=== PATIENT | male | born 1960 | race Hispanic/Latino ===

== ENCOUNTER 2021-03-29 07:28 | Outpatient (CLI) | payer OTHER, SELFPAY ==
[2021-03-29 07:59] LABS: Alanine Aminotransferase 25 U/L (4-50); Albumin Level 4.3 g/dL (3.5-5.1); Alkaline Phosphatase 65 U/L (38-126); Anion Gap 6 mmol/L (8-16); Aspartate Amino Transferase 27 U/L (17-59); Bilirubin,Total 0.3 mg/dL (0.2-1.3); Blood Urea Nitrogen 13 mg/dL (9-20); Calcium 9.3 mg/dL (8.4-10.2); Carbon Dioxide 27 mmol/L (22-30); Chloride 107 mmol/L (98-107); Cholesterol 190 mg/dL (0-200); Estimated Glomerular Filt Rate > 60; Glucose 138 mg/dL (75-110); HDL Direct 32 mg/dL; Potassium 4.1 mmol/L (3.4-5.0); Sodium 140 mmol/L (137-145); Triglycerides 187 mg/dL (<150)
[2021-03-29 08:10] LABS: LDL Cholesterol Direct 126 mg/dL
[2021-03-29 08:28] LABS: Prostate Specific Antigen 1.1 ng/mL (< OR = 4.0)
[2021-03-29 09:04] LABS: Vitamin D 25 Hydroxy 49.6 ng/mL
[2021-03-29 15:57] LABS: Creatinine Urine 54.6 mg/dL
[2021-03-29 16:01] LABS: Microalbumin Urine Random 35.5 mg/L (0-16.7)
== END 2021-03-29 07:29 | disposition home or self-care (01) ==
PROVIDERS: PCP Family Medicine; Visit Provider Family Medicine
DX: Z12.5 Encounter for screening for malignant neoplasm of prostate (principal); E78.2 Mixed hyperlipidemia; I10 Essential (primary) hypertension; E55.9 Vitamin D deficiency, unspecified; R79.89 Other specified abnormal findings of blood chemistry; Z13.220 Encounter for screening for lipoid disorders; E13.40 Other specified diabetes mellitus with diabetic neuropathy, unspecified
CPT/HCPCS: 36415; 80048; 80061; 80076; 82043; 82306; 83036; 84153; G0103

== ENCOUNTER 2023-05-17 09:10 | Outpatient (CLI) | payer OTHER, SELFPAY ==
[2023-05-17 09:58] LABS: Basophils Absolute Auto 0.1 K/mm3 (0.0-0.1); Basophils Percent Auto 0.2 % (0.2-1.2); Eosinophils Absolute Auto 0.2 K/mm3 (0-0.3); Eosinophils Percent Auto 0.4 % (0-4.4); Hematocrit 46.4 % (42.0-52.0); Hemoglobin 14.8 g/dL (14.0-18.0); Immature Granulocyte Absolute 0.16 K/mm3 (0.00-0.031); Immature Granulocyte Percent A 0.4 % (0-0.5); Lymphocytes Absolute Auto 34.72 K/mm3 (0.9-3.2); Lymphocytes Percent Auto 80.3 % (18.3-44.2); Mean Corpuscular HGB Conc 31.9 g/dl (32-36); Mean Corpuscular Hemoglobin 29.5 pg (26-34); Mean Corpuscular Volume 92.4 fl (80-100); Mean Platelet Volume 9.8 fl (7.4-10.4); Monocytes Absolute Auto 0.7 K/mm3 (0.1-0.6); Monocytes Percent Auto 1.5 % (2.6-8.5); Neutrophils Absolute Auto 7.5 K/mm3 (1.3-6.7); Neutrophils Percent Auto 17.2 % (45.5-73.1); Platelet Count Result 229 k/mm3 (150-375); Red Blood Count 5.02 M/mm3 (4.6-6.20); Red Cell Distribution Width 13.7 % (11.5-14.5); White Blood Count 43.3 K/mm3 (4.5-10.0)
[2023-05-17 10:09] LABS: Alanine Aminotransferase 33 U/L (6-50); Albumin Level 4.9 g/dL (3.5-5.1); Alkaline Phosphatase 84 U/L (38-126); Anion Gap 10 mmol/L (8-16); Aspartate Amino Transferase 26 U/L (17-59); Bilirubin,Total 0.5 mg/dL (0.2-1.3); Blood Urea Nitrogen 14 mg/dL (9-20); Calcium 9.5 mg/dL (8.4-10.2); Carbon Dioxide 25 mmol/L (22-30); Chloride 103 mmol/L (98-107); Cholesterol 225 mg/dL (0-200); Estimated Glomerular Filt Rate > 60; Glucose 161 mg/dL (65-110); HDL Direct 35 mg/dL; Potassium 4.5 mmol/L (3.4-5.0); Sodium 138 mmol/L (137-145); Triglycerides 301 mg/dL (<150)
[2023-05-17 10:09] LABS: Hemoglobin A1C 6.7 % (<5.7)
[2023-05-17 10:21] LABS: LDL Cholesterol Direct 153 mg/dL
[2023-05-17 10:40] LABS: Prostate Specific Antigen 1.4 ng/mL (< OR = 4.0)
[2023-05-17 10:40] LABS: Creatinine Urine 58.3 mg/dL
[2023-05-17 10:44] LABS: MALB Creatinine Ratio 75.6 mg/g (0-30); Microalbumin Urine Random 44.1 mg/L (0-16.7)
[2023-05-17 13:49] LABS: Platelet Estimate Adequate (Adequate)
[2023-05-17 13:52] LABS: Smudge Cells MANY
[2023-05-17 13:53] LABS: Schistocytes None Seen (NORMAL)
== END 2023-05-17 09:11 | disposition home or self-care (01) ==
PROVIDERS: PCP Family Medicine; Visit Provider Family Medicine
DX: Z12.5 Encounter for screening for malignant neoplasm of prostate (principal); E78.5 Hyperlipidemia, unspecified; R25.2 Cramp and spasm; E11.69 Type 2 diabetes mellitus with other specified complication; I10 Essential (primary) hypertension
CPT/HCPCS: 36415; 80048; 80061; 80076; 82043; 83036; 84153; 84443; 85025; G0103

== ENCOUNTER 2023-10-29 13:27 | Outpatient (CLI) | payer OTHER, SELFPAY ==
--- NOTE | 2023-10-29 13:54 | ECG_ITS ---
Measurements Intervals [place] Rate: 100 P: 41 WI: 150 QRS: 52 QRSD: 95 T: 12 QT: 322 QTc: 415 Interpretive Statements SINUS TACHYCARDIA POOR R-WAVE PROGRESSION MILD NONSPECIFIC T-WAVE ABNORMALITY BORDERLINE ECG NO PREVIOUS ECG AVAILABLE FOR COMPARISON Electronically Signed On 10-29-2023 15:00:08 DORMITORY SUPERVISOR by Bunny Pineda M.D.
[2023-10-29 14:21] LABS: Anion Gap 9 mmol/L (8-16); Blood Urea Nitrogen 14 mg/dL (9-20); Calcium 9.4 mg/dL (8.4-10.2); Carbon Dioxide 24 mmol/L (22-30); Chloride 105 mmol/L (98-107); Estimated Glomerular Filt Rate > 60; Glucose 165 mg/dL (65-110); Potassium 4.3 mmol/L (3.4-5.0); Sodium 138 mmol/L (137-145)
== END 2023-10-29 13:28 | disposition home or self-care (01) ==
PROVIDERS: Anesthesiology; PCP Family Medicine; Visit Provider Plastic Surgery
DX: Z01.818 Encounter for other preprocedural examination (principal); E11.9 Type 2 diabetes mellitus without complications; R93.1 Abnormal findings on diagnostic imaging of heart and coronary circulation
CPT/HCPCS: 36415; 80048; 93005

== ENCOUNTER 2023-10-30 01:03 | Day surgery (SDC) | payer OTHER, SELFPAY ==
[2023-10-29 08:13] VITALS: BMI 32.3
--- NOTE | 2023-10-29 08:21 | PC.NURSE ---
Addendum entered by Maicol Waldrop RN 10/29/23 08:35: Please stop the clear liquids at 615am per Dr Beatty's order. Original Note: Report to the Outpatient Waiting Room, entrance under the green pavilion located off [facility], at time _1215_ on date _[id number]_. Planned Procedure Time: _215pm_. Time changes happen often and if your time is changed the preop area will call you the afternoon before. - You and your visitor will be asked to self-screen and do not enter if you have any COVID symptoms. - A mask is optional within the hospital at this time. Patients may have clear liquids (water, carbonated beverages, clear teas, apple juice) until 3 hours prior to surgery with a maximum of 20 ounces. - No food from midnight until time of surgery Take the following medications with a SIP of water the morning of surgery: ____Gabapentin DO NOT STOP ANY OF YOUR OTHER PRESCRIPTION MEDICATIONS PRIOR TO SURGERY ?EXCEPT THE FOLLOWING Medications to discontinue per physician None Date to take last dose Please no make-up, nail tuvaluan, hairspray, perfume, deodorant, or body powder the day of surgery. No jewelry (including any body piercings) or valuables the day of surgery, leave them at home. Please take a shower or bath the night before, or the morning of, surgery with an antibacterial soap. Wear comfortable, loose fitting clothing. - Jewelry must be removed prior to entering the operating room. Rings and piercings that are not removed may be cut off. - The hospital will not accept responsibility for valuables. - Please leave all valuables, including medications, at home the day of surgery. If you are going home after surgery, a licensed tour driver must drive you home. - NO public transportation without another adult if you receive anesthesia. - We recommend that an adult stay with you for 24 hours following discharge. - We also recommend that you do not drive, make important decision, drink alcoholic beverages, or take any drugs that were not prescribed by your health care provider for at least 24 hours after your discharge time. Follow any additional instructions given to you from your surgeon. If you or anyone in your household have experienced Covid symptoms in the past week, please notify your surgeon or the nurse liaison at the phone number below for possible testing. Telephone instructions given to __Anatoliy_and asked if any additional questions and then verbalized understanding. Patient advised to call surgeon office or pre surgery nurse liaison [phone] if any additional questions.
--- NOTE | 2023-10-30 10:46 | P.HPUP_ITS ---
History and Physical Update Update Date/Time: 10/30/23 10:46 Patient seen and examined in pre-operative holding area. No interval change in medical history or symptoms. Patient recalls previous discussion of benefits and alternatives to procedure. Continues to desire to proceed with right palmar and ring finger fasciectomy for dupuytrens. Reviewed procedure, post-op expectations and risks including but not limited to bleeding, infection, injury to tendon/nerve/vessel, decreased hand function, stiffness, RSD, no change or worsening of symptoms, recurrence, incomplete release. I discussed the possible use of assistants and their participation in the case. Patient stated under standing and signed the consent form wishing to proceed.
--- NOTE | 2023-10-30 10:47 | P.OP_ITS ---
Procedure Note - Detailed Date of Procedure 10/30/23 Pre-op Diagnosis Right ring finger Dupuytren's Contracture Post-op Diagnosis Same Procedure Performed right ring finger fasciectomy Surgeon Anisa Beatty MD Aluminum Hydroxide Process Operator erika patel pa-c Anesthesia MAC Description of Procedure INFORMED CONSENT: The patient was seen and examined and marked in the pre-op area.? The patient signed the consent form. PROCEDURE IN DETAIL:The patient taken back to OR on the stretcher in supine position. Time out performed with anesthesia, surgeon and staff agreeing on patient's name site and surgery to be performed SCDs were placed on the lower extremities and inflated. A tourniquet was placed on {right} upper extremity and antibiotics given IV After anesthesia administered sedation I injected {8}cc 1%lido and 0.5% marcaine plain at the operative site The?{right upper extremity}?was prepped and draped in sterile fashion the??{right upper extremity} was? exsanguinated with Esmarch bandage and tourniquet inflated to 250mmHg I proceeded with making a longitudinal incision over the cord proximal to DPC and extending to mpj flexion crease going obliquely across flexion creases with a 15 blade scalpel. I elevated skin flaps and exposed the fascial cord. I proceeded with circumferential dissection around the cord proximally and transected the cord and proceed with with anterograde dissection of the cord and fascia until full extension of ring finger at mpjoint was achieved. The soledad rovascular bundles to the ring finger were identified and protected throughout the procedure. I irrigated with normal saline and closure with 4-0 chromic. A dressing of xeroform, 4x4, ky, and an ulnar gutter splint with ring finger in straight position was applied for patient safety, security, and comfort and secured with an rosetta bandage after the tourniquet was let down noting the hand was warm and well perfused. The patient was then awaken from anesthesia and transferred to the recovery room in stable condition.? Complications - none EBL- 1cc Disposition - home in stable conditions Erika Patel PA-C was essential for positioning, retraction, closure and dressing placement [facility] Billing Surgery - Charge Forward: Surgery Billing ([id number] - same for erika patel but add modifier)
[2023-10-30 11:20] VITALS: BP 154/80; PULSE 97; RESP 18; TEMP 37.1; O2SAT 99
[2023-10-30 12:01] LABS: Glucose Point of Care 121 mg/dl (65-105)
--- NOTE | 2023-10-30 13:01 | WPDANESEPPF ---
Anes - Initial Pre Proc Eval Procedure: Operation Date: 10/30/23 13:15 Proposed Procedures p Right Palmar Fasciectomy - Anisa Beatty MD Date/Time: 10/30/23 13:01 Surgeon: Anisa Beatty MD Pre Op Diagnosis: Right Dupuytren's Contracture Patient Data Age: 63 Gender: M Height: 1.78 m Weight: 102.3 kg Allergies Allergy/AdvReac Type Severity Reaction Status Date / Time atorvastatin AdvReac Severe Other Verified 10/30/23 11:45 Home Medications Medication Instructions Recorded Confirmed Type sildenafil 100 mg tablet 100 mg PO DAILY PRN sexual 12/16/20 10/30/23 Rx activity #10 tabs cholecalciferol (vitamin D3) 125 125 mcg PO DAILY 03/31/21 10/30/23 History mcg (5,000 unit) capsule ascorbic acid (vitamin C) 1,000 mg 1 g PO .QD 10/30/22 10/30/23 History capsule aspirin 81 mg tablet,delayed 81 mg PO .QD 10/30/22 10/30/23 History release (Adult Aspirin Regimen) gabapentin 100 mg capsule 100 mg PO TID #90 caps 02/21/23 10/30/23 Rx dapagliflozin propanediol 10 mg 10 mg PO DAILY #90 tabs 04/10/23 10/30/23 Rx tablet (Farxiga) glimepiride 1 mg tablet 1 mg PO QAM #90 tabs 07/09/23 10/30/23 Rx colesevelam 625 mg tablet (WelChol) 1,875 mg PO BID #360 tabs 08/03/23 10/30/23 Rx benazepril 10 mg tablet 10 mg PO DAILY #90 tabs 09/23/23 10/30/23 Rx sitagliptin phosphate 50 1 tablet PO BID #180 tabs 09/23/23 10/30/23 Rx mg-metformin 1,000 mg tablet (Janumet) Laboratory Tests 10/30/23 11:57 POC Capillary Glucose 121 H mg/dl (65-105) Patient hx anesthesia problems: none Family hx anesthesia problems: none Results Review: All pre-operative results and documents have been reviewed as part of the pre-operative evaluation. [facility] Past Medical History Medical History BMI 31.0-31.9,adult BMI 32.0-32.9,adult BMI greater than 30 CLL (chronic lymphocytic leukemia) Diabetes type 2, controlled Dupuytren subungual exostosis Essential (primary) hypertension Low vitamin D level Mixed hyperlipidemia Other specified diabetes mellitus with diabetic neuropathy, unspecified Persistent microalbuminuria associated with type 2 diabetes mellitus Family History Family History Mother Hypertension Family history of diabetes mellitus in first degree relative Family history of coronary artery disease Diabetes mellitus Sibling Cerebrovascular accident Father Family history of lung cancer Social History Social History Smoking status: Never smoker Second hand tobacco smoke exposure: Yes Alcohol intake: current Substance use: current Substance use type: marijuana Other substance usage details: Daily Lack of Transportation: No Lack of Food: Never True Current Housing: I Have Housing Concerned About Future Housing: No Difficulty Paying Gas/Electric Bills: No Difficulty Paying for Meds: No Currently Unemployed: No Education: High School Diploma/GED Difficulty w/ Childcare or Family Care: No Living arrangements: with family Occupation/Education: retired Additional occupation/education comments: [employer] Gender identity (if verbalized by the patient): Male Anes - Evciera Final PreProcedure Day of Procedure 10/30/23 13:01 Patient weight: obese Heart: regular rate and rhythm Lungs: decreased breath sounds Airway: Mallampati scale class II Neurological: alert and oriented Last oral intake: >/= 8 hours ASA classification: III Emergent: no Anesthetic plan: proceed Anesthesia type and monitoring: general GIVS and standard monitoring Results Review: All pre-operative results and documents have been reviewed as part of the pre-operative evaluation. Informed Consent: The patient's anesthetic plan and its attendant risks and benefits were discussed
[2023-10-30] MEDS: ceFAZolin 2 GM/D5W 50 ML 2 GM/50 ML BAG IVPB (13:27)
[2023-10-30] MEDS: BUPivacaine HCL 0.5% PF 30 ML VIAL INFILTRATE (13:27)
[2023-10-30] MEDS: LIDOCAINE HCL 1% LOCAL INJ 20 ML VIAL 7 ML INFILTRATE (13:52)
[2023-10-30] MEDS: BACITRACIN OINTMENT 15 GM TUBE 1 APPLIC TOPICAL (13:55)
[2023-10-30 13:59] VITALS: BP 113/70; PULSE 86; RESP 16; O2SAT 94
[2023-10-30] MEDS: LACTATED RINGERS 1,000 ML 30 ML IV CONT (13:59)
[2023-10-30 14:18] LABS: Glucose Point of Care 118 mg/dl (65-105)
[2023-10-30 14:35] VITALS: BP 127/61; PULSE 77; RESP 16
[2023-10-30 14:50] VITALS: BP 131/67; PULSE 80; RESP 16
== END 2023-10-30 15:04 | disposition home or self-care (01) ==
PROVIDERS: PCP Family Medicine; Visit Provider Plastic Surgery
PROC: (CPT 26045; principal; 2023-10-30 13:15)
DX: M72.0 Palmar fascial fibromatosis [Dupuytren] (principal); I10 Essential (primary) hypertension; C91.10 Chronic lymphocytic leukemia of B-cell type not having achieved remission; E11.40 Type 2 diabetes mellitus with diabetic neuropathy, unspecified; E11.29 Type 2 diabetes mellitus with other diabetic kidney complication; R80.1 Persistent proteinuria, unspecified; E78.2 Mixed hyperlipidemia; F12.90 Cannabis use, unspecified, uncomplicated; E66.9 Obesity, unspecified; Z68.32 Body mass index [BMI] 32.0-32.9, adult; Z79.84 Long term (current) use of oral hypoglycemic drugs; Z79.82 Long term (current) use of aspirin
CPT/HCPCS: 26123; 82948; 88305; A9270; J0690; J2250; J2704; J3010; J7120

== ENCOUNTER 2024-04-20 16:18 | Observation (INO) | payer OTHER, SELFPAY ==
[2024-04-20] VITALS (12 sets, daily range): BP systolic 123–169; BP diastolic 63–82; PULSE 110–122; RESP 15–22; TEMP 36.3–36.6; O2SAT 97–99; BMI 30.2
--- NOTE | ~2024-04-20 | XR_ITS ---
EXAMINATION: XR abdomen obstructive series DATE: 04/20/2024 17:12 INDICATION: Nausea and vomiting. TECHNIQUE: Upright and supine views of the abdomen on 3 radiographs were obtained. COMPARISON: Chest CT 05/12/2019 FINDINGS: There are no dilated loops of bowel. There is a small volume of stool in the colon. No free intraperitoneal gas. IMPRESSION: 1. Normal bowel gas pattern. Reviewed, dictated and finalized at location E.
--- NOTE | ~2024-04-20 | CT_ITS ---
EXAMINATION: CT abdomen pelvis wo con DATE: 04/20/2024 18:38 INDICATION: Nausea and vomiting. TECHNIQUE: Computed tomography (CT) of the abdomen and pelvis was performed without intravenous contr ast. Automated exposure control and iterative reconstruction technique were employed. The dose-length product was 1013.34 mGy-cm. COMPARISON: Chest CT 05/12/2019. FINDINGS: The visualized portions of the lung bases demonstrates a stable 5 mm nodule in right lower lobe and a stable 6 mm nodule in left lower lobe, likely benign. No pleural effusion. The heart size is normal. No pericardial effusion. There is a small sliding hiatal hernia. There is diffuse hepatic steatosis. The gallbladder, spleen, pancreas, adrenal glands, and kidneys are normal. There is no uro lithiasis. The prostate is mildly enlarged. There are no dilated loops of bowel. The appendix is norm al. Aortic atherosclerosis is noted. There are mildly enlarged bilateral external iliac nodes. For ex ample, a right external iliac node measures 21 x 11 mm. There is no free intraperitoneal fluid. There is mild thoracic and lumbar spondylosis. IMPRESSION: 1. Small sliding hiatal hernia. 2. Diffuse hepatic steatosis. 3. Mild bilateral external iliac lymphadenopathy, consistent with chronic lymphocytic leukemia. Reviewed, dictated and finalized at location E. IMPRESSION: 1. Small sliding hiatal hernia. 2. Diffuse hepatic steatosis. 3. Mild bilateral external iliac lymphadenopathy, consistent with chronic lymph ocytic leukemia.
--- NOTE | 2024-04-20 16:29 | ED.NAVMDI ---
HPI - Nausea/Vomiting/Diarrhea General Chief complaint: Nausea/Vomiting/Diarrhea Stated complaint: vomiting Time Seen by Provider: 04/20/24 16:20 Source: patient and family Mode of arrival: ambulatory Limitations: no limitations History of Present Illness HPI Narrative: Patient is a 63-year-old male with nausea vomiting which started this morning. He cannot tolerate liquids or food. He has nausea with any oral intake. No abdominal pain. He had a bowel movement yesterday. No chest pain or shortness of breath. patient [place] [address] [place]. He lowers his white blood count when he is ill. MD elicited complaint: nausea and vomiting Pertinent past history: anorexia Onset (ago): day(s) (1) Description of vomiting: watery Description of diarrhea: other ( None) Associated nausea: Yes Associated abdominal pain: No Location of pain: none Severity: moderate Pain scale (0-10): 0 Exacerbating factors: eating Relieving factors: rest Associated symptoms: loss of appetite, malaise and nausea/vomiting Related Data Home Medications Medication Instructions Recorded Confirmed cholecalciferol (vitamin D3) 125 125 mcg PO DAILY 03/31/21 04/20/24 mcg (5,000 unit) capsule ascorbic acid (vitamin C) 1,000 mg 1 g PO .QD 10/30/22 04/20/24 capsule aspirin 81 mg tablet,delayed 81 mg PO HS 10/30/22 04/20/24 release (Adult Aspirin Regimen) Allergies Allergy/AdvReac Type Severity Reaction Status Date / Time atorvastatin AdvReac Severe Other Verified 03/24/24 16:16 Review of Systems Review of Systems: All systems reviewed & are unremarkable except as noted in HPI and below Constitutional: Constitutional: Reports no additional constitutional complaints Eyes: Eyes: Reports no additional eye complaints ENT: Reports system reviewed and no additional complaints, except as documented Cardiovascular: Cardiovascular: Reports no additional cardiovascular complaints Respiratory: Respiratory: Reports no additional respiratory complaints Gastrointestinal: Gastrointestinal: Reports no additional gastrointestinal complaints Genitourinary: Genitourinary: Reports no additional male genitourinary complaints Musculoskeletal: Musculoskeletal: Reports no additional musculoskeletal complaints Integumentary/Breasts: Skin/Breast: Reports system reviewed and no additional complaints, except as docu Neurologic: Reports system reviewed and no additional complaints, except as documented Psychiatric: Psychiatric: Reports no additional psychiatric complaints Endocrine: Endocrine: Reports no additional endocrine complaints Hematologic/Lymphatic: Hematologic/Lymphatic: Reports no additional hematologic/lymphatic complaints Allergic/Immunologic: Allergic/Immunologic: Reports no additional allergic/immunologic complaints [facility] Past Medical History Medical History BMI 31.0-31.9,adult BMI 32.0-32.9,adult BMI greater than 30 CLL (chronic lymphocytic leukemia) Diabetes type 2, controlled Diabetic neuropathy Dupuytren subungual exostosis Essential (primary) hypertension Low vitamin D level Mixed hyperlipidemia Myalgia due to statin Other specified diabetes mellitus with diabetic neuropathy, unspecified Persistent microalbuminuria associated with type 2 diabetes mellitus Surgical History Surgical History History of hand surgery Family History Family History Mother Hypertension Family history of diabetes mellitus in first degree relative Family history of coronary artery disease Diabetes mellitus Sibling Cerebrovascular accident Father Family history of lung cancer Social History Social History Smoking status: Never smoker Second hand tobacco smoke exposure: Yes
--- NOTE | 2024-04-20 16:52 | ECG_ITS ---
[address] Test Date: 2024-04-20 Pat Name: Anatoliy Diaz Department: Room: Gender: Pug Machine Operator: : 1960 Requested By: Donald Williamson Order Number: [id number] Reading MD: Bunny Pineda M.D. Measurements Intervals [place] Rate: 118 P: 35 OR: 120 QRS: 67 QRSD: 89 T: 12 QT: 340 QTc: 477 Interpretive Statements SINUS TACHYCARDIA NONSPECIFIC ST & T-WAVE ABNORMALITY ABNORMAL RHYTHM ECG No previous ECG available for comparison Electronically Signed On 04-21-2024 07:37:26 CDT by Bunny Pineda M.D.
[2024-04-20] MEDS: SODIUM CHLORIDE 0.9% IV 1,000 ML 999 ML IV CONT ×2 (16:57→17:55)
[2024-04-20] MEDS: ONDANSETRON INJ 4 MG/2 ML VIAL IV PUSH (16:59)
[2024-04-20 17:16] LABS: Hematocrit 51.3 % (40.0-54.0); Hemoglobin 15.2 g/dL (14.0-18.0); Mean Corpuscular HGB Conc 29.6 g/dL (32-36); Mean Corpuscular Hemoglobin 29.3 pg (27.0-31.0); Mean Platelet Volume 9.4 fl (8.7-11.0); Platelet Count Result 338 K/mm3 (150-420); Red Blood Count 5.18 M/mm3 (4.70-6.10); Red Cell Distribution Width 13.9 % (11.6-14.4)
[2024-04-20 17:33] LABS: White Blood Count 64.5 K/mm3 (4.8-10.8)
[2024-04-20 17:35] LABS: Alanine Aminotransferase 10 U/L (16-63); Albumin Level 3.8 g/dL (3.4-5.0); Alkaline Phosphatase 100 U/L (46-116); Anion Gap 31 mmol/L (4-12); Aspartate Amino Transferase 12 U/L (15-37); Bilirubin,Total 0.5 mg/dL (0.00-1.00); Blood Urea Nitrogen 24 mg/dL (7-18); Calcium 9.8 mg/dL (8.5-10.1); Carbon Dioxide 9 mmol/L (21-32); Chloride 99 mmol/L (98-108); Estimated CRCL calculation 80 ml/min; Estimated Glomerular Filt Rate > 60; Glucose 218 mg/dL (70-99); Lipase 22 U/L (16-77); Osmolality Calculated 299 mOsm/kg (285-295); Potassium 4.8 mmol/L (3.5-5.1); Sodium 139 mmol/L (136-145); Total Protein 9.3 g/dL (6.4-8.2)
[2024-04-20 17:40] LABS: Lactic Acid Reflex 2.4 mmol/L (0.4-2.0)
[2024-04-20 17:55] LABS: Strep Group A RT-PCR NOT DETECTED (Negative)
[2024-04-20 18:01] LABS: Band Neutrophils Percent 0 % (0-6); Lymphocytes Absolute Manual 45.15 K/mm3 (1.1-4.5); Lymphocytes Percent Manual 70 % (18-44); Neutrophils Absolute Manual 19.35 K/mm3 (1.3-6.7); Neutrophils Percent Manual 30 % (46-73); Platelet Estimate Adequate (Adequate); Schistocytes None Seen; Smudge Cells MANY; Total Cells Counted 100
[2024-04-20 18:03] LABS: Other Cell Type ABNORMAL LYMPHS
[2024-04-20 18:07] LABS: SARS-CoV-2 RNA PCR Negative (Negative)
[2024-04-20 18:08] LABS: Influenza A QL RT-PCR Negative (Negative); Influenza B QL RT-PCR Negative (Negative); RSV RNA, RT-PCR Negative (Negative)
--- NOTE | 2024-04-20 18:23 | PC.NURSE ---
Pt resting, VSS, POC discussed w/ pt and his , will have CT scan at this time and 23 hr obs admit for fluids and blood work recheck in AM. Pt agreeable w/ POC.
[2024-04-20 19:28] LABS: Anion Gap 23 mmol/L (4-12); Blood Urea Nitrogen 22 mg/dL (7-18); Calcium 9.1 mg/dL (8.5-10.1); Carbon Dioxide 13 mmol/L (21-32); Chloride 103 mmol/L (98-108); Estimated CRCL calculation 89 ml/min; Estimated Glomerular Filt Rate > 60; Glucose 156 mg/dL (70-99); Osmolality Calculated 294 mOsm/kg (285-295); Potassium 4.8 mmol/L (3.5-5.1); Sodium 139 mmol/L (136-145)
[2024-04-20] MEDS: SODIUM CHLORIDE 0.9% IV 1,000 ML 150 ML IV CONT (19:56)
--- NOTE | 2024-04-20 19:56 | PC.NURSE ---
Call placed to floor, spoke to Katheryn Smith and report given, bed assigned, pt will go to Rm 210.
[2024-04-20 20:11] LABS: Reflex Lactic Acid Yes or No Add Lactic
[2024-04-20] MEDS: ASPIRIN 81 MG ENTERIC TABLET PO (20:40)
[2024-04-20] MEDS: GABAPENTIN 300 MG CAPSULE PO (20:40)
[2024-04-20] MEDS: MAG HYDROX/AL HYDROX/SIMETH 30 ML UDC PO (20:43)
[2024-04-20 22:27] LABS: Lactic Acid 1.2 mmol/L (0.4-2.0)
--- NOTE | 2024-04-20 22:39 | ADMGEN ---
This patient, Anatoliy Diaz, was admitted to 2nd Floor Room 210-2. FROM ER VIA STRETCHER. Patient/family oriented to hospital policies and general routines including ID bracelet, bed and alarms, visiting hours, pain management, procedures, bathroom and other care routines, personal items, room service/diet, and visiting hours. Information on how to activate the Rapid Response Team has been discussed. Patient/Family are encouraged to report perceived risks to care and to ask questions if they do not understand what they are told or what they should do.
[2024-04-21] VITALS: BP 118/53; PULSE 102; RESP 20; TEMP 36.7; O2SAT 97
--- NOTE | 2024-04-21 00:20 | PC.NURSE ---
Pt resting quietly on his side and doesnt voice any c/o nausea or discomfort.
--- NOTE | 2024-04-21 02:05 | PC.NURSE ---
Pt asleep and no signs of discomfort noted. 475 ml of clear, jimmie urine emptied from urinal.
[2024-04-21] MEDS: SODIUM CHLORIDE 0.9% IV 1,000 ML 150 ML IV CONT (03:38)
--- NOTE | 2024-04-21 03:40 | PC.NURSE ---
New bag of IV fluid infusing as ordered. Pt up to the bathroom to void and returned to bed per self.
[2024-04-21 04:00] VITALS: BP 144/77; PULSE 102; PULSE 98; RESP 20; TEMP 36.7; O2SAT 97
--- NOTE | 2024-04-21 04:13 | PC.NURSE ---
Pt sitting up at the bedside watching TV and IV fluid continues to infuse as ordered.
[2024-04-21 04:55] LABS: Basophils Absolute Auto 0.02 K/mm3 (0.00-0.10); Hematocrit 45.1 % (40.0-54.0); Immature Granulocyte Absolute 0.33 K/mm3 (0.00-0.00); Immature Granulocyte Percent A 0.6 % (0.0-0.0); Lymphocytes Absolute Auto 39.22 K/mm3 (1.10-4.50); Lymphocytes Percent Auto 68.9 % (18.0-42.0); Mean Corpuscular HGB Conc 28.8 g/dL (32-36); Mean Corpuscular Hemoglobin 28.8 pg (27.0-31.0); Mean Platelet Volume 8.9 fl (8.7-11.0); Monocytes Absolute Auto 1.33 K/mm3 (0.10-0.90); Monocytes Percent Auto 2.3 % (2.0-11.0); Neutrophils Absolute Auto 16.03 K/mm3 (1.70-7.20); Neutrophils Percent Auto 28.2 % (50.0-70.0); Platelet Count Result 295 K/mm3 (150-420); Red Blood Count 4.51 M/mm3 (4.70-6.10); Red Cell Distribution Width 14.2 % (11.6-14.4)
[2024-04-21 05:00] LABS: White Blood Count 56.9 K/mm3 (4.8-10.8)
--- NOTE | 2024-04-21 05:00 | PC.NURSE ---
Lab called to report a critical WBC of 56.93
[2024-04-21 05:12] LABS: Alanine Aminotransferase 14 U/L (16-63); Albumin Level 3.2 g/dL (3.4-5.0); Alkaline Phosphatase 75 U/L (46-116); Anion Gap 16 mmol/L (4-12); Aspartate Amino Transferase 12 U/L (15-37); Bilirubin,Total 0.4 mg/dL (0.00-1.00); Blood Urea Nitrogen 18 mg/dL (7-18); Calcium 8.8 mg/dL (8.5-10.1); Carbon Dioxide 18 mmol/L (21-32); Chloride 104 mmol/L (98-108); Estimated CRCL calculation 104 ml/min; Estimated Glomerular Filt Rate > 60; Glucose 124 mg/dL (70-99); Osmolality Calculated 288 mOsm/kg (285-295); Potassium 4.2 mmol/L (3.5-5.1); Sodium 138 mmol/L (136-145); Total Protein 7.7 g/dL (6.4-8.2)
[2024-04-21 05:18] LABS: Lactic Acid Reflex 1.2 mmol/L (0.4-2.0)
--- NOTE | 2024-04-21 06:39 | PC.NURSE ---
Pt asleep and no signs of discomfort noted.
--- NOTE | 2024-04-21 07:36 | PM.SD2 ---
Same Day Admit/Disch: HPI History of Present Illness Chief complaint: DEHYDRATION AGMA LEUKOCYTOSIS TACHYCARDIA Narrative: Anatoliy Diaz is a 63 [place] [address] Emergency Room Visit Note Signed Patient: Anatoliy Diaz MR#: [id number] : 1960 Acct:[id number] Age: 63 ADM Date: 04/20/24 [facility]: cc: Harlan Bolivar MD; Donald Rosario MD~ HPI - Nausea/Vomiting/Diarrhea General Chief complaint: Nausea/Vomiting/Diarrhea Stated complaint: vomiting Time Seen by Provider: 04/20/24 16:20 Source: patient and family Mode of arrival: ambulatory Limitations: no limitations History of Present Illness HPI Narrative: Patient is a 63-year-old male with nausea vomiting which started this morning. He cannot tolerate liquids or food. He has nausea with any oral intake. No abdominal pain. He had a bowel movement yesterday. No chest pain or shortness of breath. patient [place] [address] typically. He lowers his white blood count when he is ill. MD elicited complaint: nausea and vomiting Pertinent past history: anorexia Onset (ago): day(s) (1) Description of vomiting: watery Description of diarrhea: other ( None) Associated nausea: Yes Associated abdominal pain: No Location of pain: none Severity: moderate Pain scale (0-10): 0 Exacerbating factors: eating Relieving factors: rest Associated symptoms: loss of appetite, malaise and nausea/vomiting PMFSH Past Medical History Medical History BMI 31.0-31.9,adult BMI 32.0-32.9,adult BMI greater than 30 CLL (chronic lymphocytic leukemia) Diabetes type 2, controlled Diabetic neuropathy Dupuytren subungual exostosis Essential (primary) hypertension Low vitamin D level Mixed hyperlipidemia Myalgia due to statin Other specified diabetes mellitus with diabetic neuropathy, unspecified Persistent microalbuminuria associated with type 2 diabetes mellitus Surgical History Surgical History History of hand surgery Family History Family History Mother Hypertension Family history of diabetes mellitus in first degree relative Family history of coronary artery disease Diabetes mellitus Sibling Cerebrovascular accident Father Family history of lung cancer Social History Social History Smoking status: Never smoker Second hand tobacco smoke exposure: Yes Alcohol intake: former Substance use: current Substance use type: marijuana Other substance usage details: Daily Do You Feel Safe in your Home?: Yes Lack of Transportation: No Lack of Food: Never True Current Housing: I Have Housing Concerned About Future Housing: No Difficulty Paying Gas/Electric Bills: No Difficulty Paying for Meds: No Currently Unemployed: No Education: High School Diploma/GED Difficulty w/ Childcare or Family Care: No Living arrangements: with family Occupation/Education: retired Additional occupation/education comments: [employer] Gender identity (if verbalized by the patient): Male Spiritual care concerns: No Same Day Admit/Disch: Med Pre-admit Medications Home Medications Medication Instructions Recorded Confirmed Type cholecalciferol (vitamin D3) 125 125 mcg PO DAILY 03/31/21 04/20/24 History mcg (5,000 unit) capsule ascorbic acid (vitamin C) 1,000 mg 1 g PO .QD 10/30/22 04/20/24 History capsule aspirin 81 mg tablet,delayed 81 mg PO HS 10/30/22 04/20/24 History release (Adult Aspirin Regimen) benazepril 10 mg tablet 10 mg PO DAILY #90 tabs 09/23/23 04/20/24 Rx dapagliflozin propanediol 10 mg 10 mg PO ROBBIE
[2024-04-21 07:54] VITALS: BP 132/73; PULSE 101; PULSE 92; RESP 16; TEMP 36.6; O2SAT 98
[2024-04-21] MEDS: GLIMEPIRIDE 1 MG TABLET PO (08:45)
[2024-04-21] MEDS: ENOXAPARIN 40 MG/0.4 ML SYRINGE SUB-Q (08:45)
[2024-04-21] MEDS: EMPAGLIFLOZIN 25 MG TABLET PO (08:46)
[2024-04-21] MEDS: metFORMIN HCL 500 MG TABLET 1000 MG PO (08:46)
[2024-04-21] MEDS: GABAPENTIN 100 MG CAPSULE PO (08:46)
[2024-04-21] MEDS: SITagliptin PHOSPHATE 50 MG TABLET PO (08:47)
[2024-04-21] MEDS: lisinopriL 10 MG TABLET PO (08:48)
[2024-04-21] MEDS: PANTOPRAZOLE SODIUM IV 40 MG VIAL IV PUSH (08:53)
[2024-04-21] MEDS: ACETAMINOPHEN 325 MG TABLET 650 MG PO (09:23)
[2024-04-21] MEDS: COLESEVELAM 625 MG TABLET 1875 MG PO (10:48)
[2024-04-21 12:00] VITALS: PULSE 85; PULSE 92; RESP 18; TEMP 36.6; O2SAT 97
--- NOTE | 2024-04-21 13:56 | PC.NURSE ---
IV site and telemetry discontinued for discharge.
--- NOTE | 2024-04-21 14:13 | PC.NURSE ---
Discharge instructions given to patient and his . Both voiced understanding. Patient left unit in w/c accompanied by patient's and nurse. Patient left hospital grounds in privately owned vehicle. Personal belongings sent home with patient.
--- NOTE | 2024-04-22 09:25 | PC.NURSE ---
Discharge call back attempted, no answer
--- NOTE | 2024-04-23 09:20 | PC.NURSE ---
Discharge call back attempted, no answer
--- NOTE | 2024-04-24 09:41 | PC.NURSE ---
Unable to reach for discharge call back
== END 2024-04-21 14:13 | disposition home or self-care (01) ==
LOC: CHSED 18:51 → CHS2ND 20:02
PROVIDERS: Admitting Provider Internal Medicine; Emergency Provider Emergency Medicine; PCP Family Medicine; Visit Provider Internal Medicine
DX: K29.70 Gastritis, unspecified, without bleeding (principal); R11.2 Nausea with vomiting, unspecified; E86.0 Dehydration; R00.0 Tachycardia, unspecified; E87.20 Acidosis, unspecified; C91.10 Chronic lymphocytic leukemia of B-cell type not having achieved remission; I10 Essential (primary) hypertension; E11.40 Type 2 diabetes mellitus with diabetic neuropathy, unspecified; E78.2 Mixed hyperlipidemia; E55.9 Vitamin D deficiency, unspecified; F12.90 Cannabis use, unspecified, uncomplicated; Z79.84 Long term (current) use of oral hypoglycemic drugs; Z79.82 Long term (current) use of aspirin; Z20.822 Contact with and (suspected) exposure to COVID-19
CPT/HCPCS: 36415; 74019; 74176; 80048; 80053; 83605; 83690; 85025; 87637; 87651; 93005; 96361; 96372; 96374; 99285; A9270; C9113; G0378; J1650; J2405; J7030

== ENCOUNTER 2024-06-27 08:32 | Outpatient (CLI) | payer OTHER, SELFPAY ==
[2024-06-27 09:18] LABS: Hematocrit 43.2 % (42.0-52.0); Hemoglobin 13.8 g/dL (14.0-18.0); Mean Corpuscular HGB Conc 31.9 g/dl (32-36); Mean Corpuscular Hemoglobin 29.9 pg (26-34); Mean Corpuscular Volume 93.5 fl (80-100); Mean Platelet Volume 9.7 fl (7.4-10.4); Platelet Count Result 258 k/mm3 (150-375); Red Blood Count 4.62 M/mm3 (4.6-6.20); Red Cell Distribution Width 14.3 % (11.5-14.5); White Blood Count 46.7 K/mm3 (4.5-10.0)
[2024-06-27 10:05] LABS: Lymphocytes Absolute Manual 9.34 K/mm3 (1.1-4.5); Monocytes Absolute Manual 3.26 K/mm3 (0.1-0.90); Monocytes Percent Manual 7 % (3-9); Neutrophils Percent Manual 73 % (46-73); Total Cells Counted 100
[2024-06-27 10:06] LABS: Platelet Estimate Adequate (Adequate); Schistocytes None Seen
[2024-06-27 10:15] LABS: Vitamin D 25 Hydroxy 59.4 ng/mL
[2024-06-27 14:11] LABS: MALB Creatinine Ratio 138.7 mg/g (0-30); Microalbumin Urine Random 137.3 mg/L (0-16.7)
[2024-06-27 20:11] LABS: Hemoglobin A1C 6.3 % (<5.7)
[2024-06-27 22:21] LABS: LDL Cholesterol Direct 111 mg/dL
[2024-06-27 22:45] LABS: Alanine Aminotransferase 16 U/L (6-50); Albumin Level 4.5 g/dL (3.5-5.1); Alkaline Phosphatase 75 U/L (38-126); Anion Gap 12 mmol/L (4-12); Aspartate Amino Transferase 25 U/L (17-59); Bilirubin,Total 0.3 mg/dL (0.2-1.3); Blood Urea Nitrogen 19 mg/dL (9-20); Calcium 9.5 mg/dL (8.4-10.2); Carbon Dioxide 25 mmol/L (22-30); Chloride 101 mmol/L (98-107); Cholesterol 179 mg/dL (0-200); Estimated Glomerular Filt Rate > 60; Glucose 106 mg/dL (65-110); HDL Direct 36 mg/dL; Sodium 138 mmol/L (137-145); Triglycerides 212 mg/dL (<150)
[2024-06-27 23:05] LABS: Prostate Specific Antigen 2.1 ng/mL (< OR = 4.0)
[2024-07-02 17:04] LABS: Testosterone Free 31.3 pg/mL (35.0-155.0); Testosterone Total 296 ng/dL (250-1100)
== END 2024-06-27 08:33 | disposition home or self-care (01) ==
PROVIDERS: PCP Family Medicine; Visit Provider Family Medicine
DX: C91.10 Chronic lymphocytic leukemia of B-cell type not having achieved remission (principal); E78.2 Mixed hyperlipidemia; E11.29 Type 2 diabetes mellitus with other diabetic kidney complication; R80.9 Proteinuria, unspecified; E55.9 Vitamin D deficiency, unspecified; R79.89 Other specified abnormal findings of blood chemistry; N52.1 Erectile dysfunction due to diseases classified elsewhere; M79.10 Myalgia, unspecified site; T46.6X5A Adverse effect of antihyperlipidemic and antiarteriosclerotic drugs, initial encounter; Z12.5 Encounter for screening for malignant neoplasm of prostate; Z13.220 Encounter for screening for lipoid disorders
CPT/HCPCS: 36415; 80048; 80061; 80076; 82043; 82306; 83036; 84153; 84402; 84403; 85025; G0103

== ENCOUNTER 2024-12-02 10:09 | Outpatient (CLI) | payer OTHER, SELFPAY ==
--- NOTE | ~2024-12-02 | XR_ITS ---
EXAMINATION: XR chest 2V DATE: 12/02/2024 10:50 INDICATION: Tachycardia TECHNIQUE: PA and lateral views of the chest were obtained. COMPARISON: CT dated 05/12/2019 FINDINGS: The lungs are clear with no focal airspace opacities, pulmonary edema, pleural effusion or pneumothor ax. The cardiomediastinal silhouette is normal. Mild thoracic spondylosis. IMPRESSION: 1. No acute cardiopulmonary disease. Reviewed, dictated and finalized at location B. ERS COMPENSATION EXAMINER
--- NOTE | 2024-12-02 10:17 | EST_ITS ---
Patient Info Name: Anatoliy Diaz Age: 64 years : 1960 Gender: Male Ht: 71 in Wt: 225 lbs BSA: 2.29 m2 HR: 74 bpm BP: 144 / 74 mmHg Exam Date: 12/02/2024 10:26 AM Exam Location: Echo Lab Patient Status: Outpatient Admit Date: 12/02/2024 Staff Ordering Physician: Harlan Bolivar MD Attending Provider: Harlan Bolivar MD Exercise Technologist: Claire Harry RDCS Exercise Physician: Devan Palafox DO Exam Type: CA stress test treadmill Study Info A treadmill exercise stress test was performed. Summary 1. 1. Negative Torin exercise stress test for ischemic ST changes by ECG criteria. 2. 2. Reduced functional capacity, achieving 7 METs of workload. 3. 3. Baseline hypertension. 4. 4. Appropriate HR response to exercise. 5. 5. Appropriate HR recovery at 1 minute post exercise. 6. 6. Patient informed of the above results. Protocol: Torin Stress ECG Details Stage: REST Duration (min): 0 min : 49 sec Speed (mph): 0.0 Grade (%): 0 HR (bpm): 75 SBP (mmHg): 144 DBP (mmHg): 74 METS: --- Stage: REST Duration (min): 3 min : 25 sec Speed (mph): 0.0 Grade (%): 0 HR (bpm): 83 SBP (mmHg): 144 DBP (mmHg): 74 METS: --- Stage: STAGE 1 Duration (min): 1 min : 0 sec Speed (mph): 1.7 Grade (%): 10 HR (bpm): 105 SBP (mmHg): 144 DBP (mmHg): 74 METS: --- Stage: STAGE 1 Duration (min): 2 min : 0 sec Speed (mph): 1.7 Grade (%): 10 HR (bpm): 116 SBP (mmHg): 144 DBP (mmHg): 74 METS: --- Stage: STAGE 1 Duration (min): 3 min : 0 sec Speed (mph): 1.7 Grade (%): 10 HR (bpm): 124 SBP (mmHg): 171 DBP (mmHg): 79 METS: --- Stage: STAGE 2 Duration (min): 1 min : 0 sec Speed (mph): 2.5 Grade (%): 12 HR (bpm): 132 SBP (mmHg): 171 DBP (mmHg): 79 METS: --- Stage: STAGE 2 Duration (min): 2 min : 0 sec Speed (mph): 2.5 Grade (%): 12 HR (bpm): 139 SBP (mmHg): 182 DBP (mmHg): 81 METS: --- Stage: STAGE 2 Duration (min): 3 min : 0 sec Speed (mph): 2.5 Grade (%): 12 HR (bpm): 142 SBP (mmHg): 182 DBP (mmHg): 81 METS: --- Stage: RECOVERY Duration (min): 0 min : 59 sec Speed (mph): 0.0 Grade (%): 0 HR (bpm): 122 SBP (mmHg): 188 DBP (mmHg): 80 METS: --- Stage: RECOVERY Duration (min): 1 min : 59 sec Speed (mph): 0.0 Grade (%): 0 HR (bpm): 114 SBP (mmHg): 188 DBP (mmHg): 80 METS: --- Stage: RECOVERY Duration (min): 2 min : 59 sec Speed (mph): 0.0 Grade (%): 0 HR (bpm): 106 SBP (mmHg): 196 DBP (mmHg): 62 METS: --- Stage: RECOVERY Duration (min): 3 min : 2 sec Speed (mph): 0.0 Grade (%): 0 HR (bpm): 107 SBP (mmHg): 196 DBP (mmHg): 62 METS: --- Rest HR: 83 bpm Peak HR: 145 bpm Rest Sys BP: 144 mmHg Peak Sys BP: 196 mmHg Max Pred HR: 156 bpm % Max Pred HR: 93 % Target HR: 133 bpm Max RPP: 28,420 bpm*mmHg Manuel Score: -1 Termination Reason: Reached target heart rate or workload Cardiac Symptoms: Shortness of breath Max ST Seg Deviation: -1.40 mm Total Time: 6 min : 0 sec Rest Allison BP: 74 mmHg Peak Allison BP: 62 mmHg Angina Score: None Total METS: 7.1 Resting ECG Sinus rhythm. Stress ECG No ST changes. Arrhythmias None. Report Signatures
== END 2024-12-02 10:10 | disposition home or self-care (01) ==
PROVIDERS: PCP Family Medicine; Visit Provider Family Medicine
DX: R07.9 Chest pain, unspecified (principal); R00.0 Tachycardia, unspecified; I10 Essential (primary) hypertension
CPT/HCPCS: 71046; 93017

== ENCOUNTER 2025-03-11 09:32 | Outpatient (CLI) | payer OTHER, SELFPAY ==
--- OUTSIDE RECORDS SUMMARY | 2025-03-11 10:32 | XMS_ITS | Clinical Summary ---
Author Organization [facility] Address [facility] [place] [address] Care Team Providers Care Precision Machinist Name Role Phone Unavailable Primary Care Provider Unavailabl e Social History Tobacco Use Types Packs/Day Years Used Date Smoking Tobacco: Never Assessed Sex and Gender Information Value Date Recorded Sex Assigned at Not on file Legal Sex Male 6:16 PM CDT Gender Identity Not on file Sexual Orientation Not on file Plan of Treatment Health Maintenance Due Date Last Done Comments Colorectal Cancer Screening Colonoscopy (10 Years) 1960 Annual Physical 1963 Hepatitis C 1978 DTaP, Tdap and Td Vaccines ( 1 - Tdap) 1979 Pneumococcal Vaccine: 50+ Ye ars (1 of 1 - PCV) 2010 Zoster Vaccines (1 of 2) 2010 COVID-19 Vaccine (2023-2 5 season) 2024 RSV Immunization or 60+ Years (1 - 1-dose 75+ series) 2035 Meningococcal B Vaccine Aged Out No l onger eligible based on patient's age to complete this topic Meningococcal Vaccine Aged Out No destiny mariya eligible based on patient's age to complete this topic RSV Immunizations Under 20 Months Aged Out No longer eligible based on patient's age to complete this topic Insurance [employer]
--- OUTSIDE RECORDS SUMMARY | 2025-03-11 10:32 | XMS_ITS | Referral Summary ---
Author Organization [facility] Address [address] [place] [address] Care Team Providers Care Tablet Machine Operator Name Role Phone Harlan Bolivar MD Primary Care Provider [phone] Harlan Bolivar MD Unavailable [phone] Hawa Bolton MD Unavailable [phone] Allergies Active Allergy Reactions Criticality Noted Date Comments Atorvastatin Calcium Unknown 08/23/2016 Bnsrjrb-Pms-Ofg Reductase Inhibitors Unknown 08/23/2016 Medications colesevelam (WELCHOL) 625 mg tablet 02/21/2017Welchol, po solid 625 mg TabletPOdailyCurrent Medication 02/22/20 17 Active aspirin 81 mg tablet 02/21/2017Aspir 81, po solid 81 mg Tablet, delayed release (enteric coated)POdailyCurrent Medication 02/22/20 17 Active glimepiride (AMARYL) 1 mg tabletIndicat ions:type 2 diabetes mellitus 02/21/2017Amaryl, po solid 1 mg TabletPOdailyCurrent Medication 02/22/20 17 Active sildenafil (VIAGRA) 50 mg tablet Take 1 tablet (50 mg total) by mouth daily as needed for erectile dysfunction Active benazepril (LOTENSIN) 10 mg tablet Take 1 tablet (10 mg total) by mouth daily 0 05/02/20 19 Active JANUMET 50-1,000 mg per tablet Take 2 tablets by mouth 2 (two) times a day with meals 3 04/27/20 19 Active UNABLE TO FIND Medical Marijuana pen Active ascorbic acid (VITAMIN C) 1,000 mg tablet Take 1 tablet (1,000 mg total) by mouth daily Act avel cholecalcifer ol, vitamin D3, (VITAMIN D3 ORAL) Take by mouth Active Farxiga 10 mg tablet Take 1 tablet (10 mg total) by mouth daily 11/02/20 Active gabapentin (NEURONTIN) 100 mg capsule Take 1 capsule (100 mg total) by mouth 3 (three) times a day 11/02/20 Active Active Problems Problem Noted Date Diagnosed Date Pulmonary nodule 05/20/2020 CLL (chronic lymphocytic leukemia) 05/17/2018 Immunizations Immunization Administration Dates Next Due Influenza, Unspecified 02/21/2017,08/23/2016, Pfizer SARS-CoV-2 Monovalent Vaccination (12+ Yrs) PURPLE 03/08/2021,02/08/2021 ZOSTER LIVE 02/21/2017,08/23/2016 Social History Tobacco Use Types Packs/Day Years Used Date Smoking Tobacco: Light Smoker Cigars Smokeless Tobacco: Never Tobacco Cessation:Ready to Q uit: Yes Alcohol Use Standard Drinks/Week Comments Yes 0 (1 standard drink = 0.6 oz pur e alcohol) rare AUDIT-C Answer Date Recorded Q1: How often do you have a drink containing alc ohol? Never 05/30/2021 Average Number of Drinks Not on file 021 Frequency of Binge Drinking Not on file 05/19 Sex and Gender Information Value Date Recorded Sex Assigned at Not on file Legal Sex Male 3:03 PM CDT Gender Identity Male 05/21/2018 2:55 PM CDT Sexual Orientation Not on file Last Filed Vital Signs Vital Sign Reading Time Taken Comments Blood Pressure 127/75 12/01/2024 3:06 PM SHEET METAL FABRICATOR Pulse 89 12/01/2024 3:06 PM SHEET METAL FABRICATOR Temperature 36.3 C (97.3 F) 12/01/2024 3:06 PM SHEET METAL FABRICATOR Respiratory Rate 18 12/01/2024 3:06 PM SHEET METAL FABRICATOR Oxygen Saturation 97% 12/01/2024 3:06 PM SHEET METAL FABRICATOR Inhaled Oxygen Concentration - - Weight 106.1 kg (234 lb) 12/01/2024 3:06 PM SHEET METAL FABRICATOR Height 181.6 cm (5' 11.5 ) 12/01/2024 3:06 PM CS T w shoes Body Mass Index 32.18 12/01/2024 3:06 PM SHEET METAL FABRICATOR Plan of Treatment Not on file Insurance [facility] Care Teams Tablet Machine Operator Relationship Specialty Start Date End Date Harlan Bolivar MD PCP - General Family Medicine 03/19/18 Harlan Bolivar MD 03/19/18 Hawa Bolton MD [address] [employer] MARROW TRANSPL[employer], [address] [place] [address] Medical Oncologist/Medical Records Director Hematology 05/28/23
--- OUTSIDE RECORDS SUMMARY | 2025-03-11 10:32 | XMS_ITS | Clinical Summary ---
Author Organization [facility] Address [address] [place] [address] Care Team Providers Care Leather Case Finisher Name Role Phone Unavailable Primary Care Provider Unavailabl e Social History Tobacco Use Types Packs/Day Years Used Date Smoking Tobacco: Never Assessed Sex and Gender Information Value Date Recorded Sex Assigned at Not on file Legal Sex Male 1:28 PM FLOUR DISTRIBUTOR Gender Identity Not on file Sexual Orientation Not on file Plan of Treatment Health Maintenance Due Date Last Done Comments Hepatitis C Virus (HCV) Screening 1960 TdaP Immunization 1960 Colonoscopy 2005 Colorectal Cancer Screening 2005 Cologuard 2010 Immunochemical Fecal Occult Blood 2010 Pneumococcal Immunization (5 0+ years) (1 of 1 - PCV) 2010 Zoster Immunization (1 of 2) 2010 PSA Discussion 2015 Influenza Immunization (#1) 2024 SARS-COV-2 Immunization (3 - 2023- season) 2024 03/08/2021, 02/08/2021 Respiratory Syncytial Virus (RSV) Immunization (Adult) (1 - 1-dose 75+ series) 2035 Hepatitis B Immunization Aged Out No longer eligible based on patient's age to complete this topic Meningococcal Immunization (ACWY) Aged Out No longer eligible b ased on patient's age to complete this topic Pneumococcal Immunization Combined Aged Out No longer eligible b ased on patient's age to complete this topic Rotavirus Immunization Aged Out No lo nger eligible based on patient's age to complete this topic
--- OUTSIDE RECORDS SUMMARY | 2025-03-11 10:32 | XMS_ITS | Clinical Summary ---
Author Organization [facility] Address [address] [place] [id number] Care Team Providers Care Yacht Hand Name Role Phone Harlan Bolivar MD Primary Care Provider [phone] Harlan Bolivar MD Unavailable [phone] Hawa Bolton MD Unavailable [phone] Allergies Active Allergy Reactions Criticality Noted Date Comments Atorvastatin Calcium Unknown 08/23/2016 Yamgxfx-Cnr-Hle Reductase Inhibitors Unknown 08/23/2016 Medications colesevelam (WELCHOL) [...] (12+ Yrs) PURPLE 03/08/2021,02/08/2021 ZOSTER LIVE 02/21/2017,08/23/2016 Medical History Medical History Date Comments Chronic lymphocytic leukemia (HCC) Diabetes mellitus (HCC) Family History Medical History Relation Name Comments Lung cancer Father Diabetes Mother Heart disease Mother Relation Name Status Comments Father Mother Social History Tobacco Use Types Packs/Day Years [...] PM CDT Sexual Orientation Not on file Obstetrics History Last Filed Vital Signs Vital Sign Reading Time Taken Comments Blood Pressure 127/75 12/01/2024 3:06 PM RIDES SUPERVISOR Pulse 89 12/01/2024 3:06 PM RIDES SUPERVISOR Temperature 36.3 C (97.3 F) 12/01/2024 3:06 PM RIDES SUPERVISOR Respiratory Rate 18 12/01/2024 3:06 PM RIDES SUPERVISOR Oxygen Saturation 97% 12/01/2024 3:06 PM RIDES SUPERVISOR Inhaled Oxygen Concentration - - Weight 106.1 kg (234 lb) 12/01/2024 3:06 PM RIDES SUPERVISOR Height 181.6 cm (5' 11.5 ) 12/01/2024 3:06 PM CS Dillan garcia Body Mass Index 32.18 12/01/2024 3:06 PM RIDES SUPERVISOR Plan of Treatment Health Maintenance Due Date Last Done Comments Colon Cancer Screening-Colonoscopy 1960 Depression Screening 1960 Hepatitis C Screening 1960 Prostate Cancer Screening-PSA 1960 DTaP/Tdap/Td Vaccine (1 - Tdap) 1971 Hepatitis B Screening 1978 Regular Well Visit/Exam 18-64 1978 Pneumococcal vaccine <65 (1 of 2 - PCV) 1979 Zoster Vaccine (1 of 2) 04/18/2017 02/21/2017, 08/23 Covid-19 Vaccine (3 - Pfizer risk series) 04/05/2021 03/08/2021, 02/08/2021 Influenza Vaccine (#1) 2024 7, 08/23/2016, 08/31/2015 Insurance [facility] Care Teams Yacht Hand Relationship Specialty Start Date End Date Harlan Bolivar MD PCP - General Family Medicine 03/19/18 Harlan Bolivar MD 03/19/18 Hawa Bolton MD [address] IM BONE MARROW TRANSPLANT, [address] [place] [address] Medical Oncologist/Base Draw Operator Hematology 05/28/23
--- OUTSIDE RECORDS SUMMARY | 2025-03-11 10:32 | XMS_ITS | Continuity of Care Document ---
Author Organization [facility] Address [address] [place] [address] [place] [address] Phone Care Team Providers Care Denier Control Operator Name Role Phone Bryson Swartz DO Unavailable Unavailable Advance Directives Directive Yes / No Effective Date File Name No Information Encounters Encounter Description Practice Location Reason(s) For Visit Diagnoses Date Provider Providers Copied on Encounter [facility], [id number] [place] [address] [address], [place], [place], [id number], tel:[phone] [facility] No Information Maxime Silverman. [address] [place] [address], [address], [place]. tel:[phone] Referring Provider: Bryson GEORGES, [address] [place] [address], [facility]. tel:[phone] Family History Family Member Type Diagnosis Age At Onset No Information Payers Payer name Insurance type Covered constitution party ID Authoriza nyla(s) [facility] Commercial [id number] Social History Type Description Quantity Date Captured [...]
--- NOTE | 2025-03-23 10:31 | WPDHOLTEREM ---
Holter/Event Monitor Holter/Event Monitor Date of procedure: 03/11/25 Holter/Event Procedure: 3-7 Day Holter Monitor Indications: Tachycardia Conclusion: 1. 7 days holter monitor on 03/11/25. 2. Predominant rhythm is sinus rhythm. HR range 54-154 bpm; average 85 bpm. HR at 154 bpm was on 03/16/25 at 8:20 pm. 3. There are rare premature supraventricular complexes, rare supraventricular couplets, and rare supraventricular triplets. There is 1 episode of atrial tachycardia at 141 bpm lasting 5 beats. 4. There are rare premature ventricular complexes and rare ventricular couplets. No ventricular tachycardia. 5. No significant pauses greater than 3 seconds. 6. N0 symptoms available for correlation.
== END 2025-03-11 09:33 | disposition home or self-care (01) ==
LOC: ANHCARD 09:33
PROVIDERS: PCP Family Medicine; Visit Provider Family Medicine
DX: R00.0 Tachycardia, unspecified (principal)
CPT/HCPCS: 93242

== ENCOUNTER 2025-09-19 07:47 | Outpatient (CLI) | payer MEDICARE, SELFPAY ==
--- OUTSIDE RECORDS SUMMARY | 2003-06-16 06:00 | XMS_ITS | Continuity of Care Document ---
Author Organization 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 [address] [place] [address], [address], [place]. tel:[phone] Referring Provider: Bryson GEORGES, [address] [place] [address], [facility]. tel:[phone] Family History Family Member Type Diagnosis Age At Onset No Information Payers Payer name Insurance type Covered green party ID Authoriza nyla(s) [facility] Commercial [id number] Social History Type Description Quantity Date Captured Comments Sex Male Smoking Status No Information Chief Complaint And Reason For Visit No Information Reason For Referral Reason For Referral No Information History Of Present Illness Encounter Date Complaint History Of Prese nt Illness No Information Functional Status Date Functional Assessmen t No Information Instructions Date Instruction Additional Infor mation No Information Assessments Type Assessment Date No Information Patient Care Teams Name Effective Dates (start - stop) Status Members No Information
--- OUTSIDE RECORDS SUMMARY | 2025-09-19 07:57 | XMS_ITS | Clinical Summary ---
Author Organization [facility] Address [facility] [place] [address] Care Team Providers Care Handhole Machine Operator Name Role Phone Unavailable Primary Care Provider [...] Colorectal Cancer Screening Colonoscopy (10 Years) 1960 Hepatitis C 1978 DTaP, Tdap and Td Vaccines ( 1 - Tdap) 1979 Pneumococcal Vaccine: 50+ Ye ars (1 of 1 - PCV) 2010 Zoster Vaccines (1 of 2) 2010 COVID-19 Vaccine ( - 2024-2 6 season) 2025 Influenza Adult (#1) 2025 RSV Immunization or 60+ Years (1 - 1-dose 75+ series) 2035 Hepatitis A Vaccines Aged Out No long er eligible based on patient's age to complete this topic Meningococcal B Vaccine Aged Out No l onger eligible based on patient's age to complete this topic Meningococcal Vaccine Aged Out No destiny mariya eligible based on patient's age to complete this topic RSV Immunizations Under 20 Months Aged Out No longer eligible based on patient's age to complete this topic Insurance [employer]
--- OUTSIDE RECORDS SUMMARY | 2025-09-19 07:57 | XMS_ITS | Clinical Summary ---
Author Organization [facility] Address [address] [place] [address] Care Team Providers Care Paster Hat Lining Name Role Phone Unavailable Primary Care Provider Unavailabl e Social History Tobacco Use Types Packs/Day Years Used Date Smoking Tobacco: Never Assessed Sex and Gender Information Value Date Recorded Sex Assigned at Not on file Legal Sex Male 1:28 PM BILLING AND INSURANCE COORDINATOR Gender Identity Not on file Sexual Orientation Not on file Plan of Treatment Health Maintenance Due Date Last Done Comments Hepatitis C Virus (HCV) Screening 1960 TdaP Immunization 1960 Cologuard 2005 Colonoscopy 2005 Colorectal Cancer Screening 2005 Immunochemical Fecal Occult Blood 2005 Pneumococcal Immunization (5 0+ years) (1 of 1 - PCV) 2010 Zoster Immunization (1 of 2) 2010 Influenza Immunization (#1) 2025 SARS-COV-2 Immunization (3 - 2024- season) 2025 03/08/2021, 02/08/2021 Respiratory Syncytial Virus (RSV) Immunization (Adult) (1 - 1-dose 75+ series) 2035 Hepatitis B Immunization Aged Out No longer eligible based on patient's age to complete this topic Human Papillomavirus (HPV) Immunization Aged Out No longer eligible b ased on patient's age to complete this topic Meningococcal Immunization (ACWY) Aged Out No longer eligible b ased on patient's age to complete this topic Rotavirus Immunization Aged Out No lo nger eligible based on patient's age to complete this topic
--- OUTSIDE RECORDS SUMMARY | 2025-09-19 07:57 | XMS_ITS | Clinical Summary ---
Author Organization [facility] Address [address] [place] [id number] Care Team Providers Care Sample Sewer Name Role Phone Harlan Bolivar MD Primary Care Provider [phone] Harlan Bolivar MD Unavailable [phone] Hawa Bolton MD Unavailable [phone] Allergies Active Allergy Reactions Criticality Noted Date Comments Atorvastatin Calcium Unknown 08/23/2016 Fzopwsw-Nhg-Uhi Reductase Inhibitors Unknown 08/23/2016 Medications colesevelam (WELCHOL) 625 mg tablet 02/21/2017Welchol, po solid 625 mg TabletPOdailyCurrent Medication 017 Active aspirin 81 mg tablet 02/21/2017Aspir 81, po solid 81 mg Tablet, delayed release (enteric coated)POdailyCurrent Medication 017 Active glimepiride (AMARYL) 1 mg tabletIndicati ons:type 2 diabetes mellitus 02/21/2017Amaryl, po solid 1 mg TabletPOdailyCurrent Medication 017 Active sildenafil (VIAGRA) 50 mg tablet Take 1 tablet (50 mg total) by mouth daily as needed for erectile dysfunction Active benazepril (LOTENSIN) 10 mg tablet Take 1 tablet (10 mg total) by mouth daily 0 019 Active JANUMET 50-1,000 mg per tablet Take 2 tablets by mouth 2 (two) times a day with meals 3 019 Active UNABLE TO FIND Medical Marijuana pen Active ascorbic acid (VITAMIN C) 1,000 mg tablet Take 1 tablet (1,000 mg total) by mouth daily Act avel cholecalcifero l, vitamin D3, (VITAMIN D3 ORAL) Take by mouth Active Farxiga 10 mg tablet Take 1 tablet (10 mg total) by mouth daily 020 Active gabapentin (NEURONTIN) 100 mg capsule Take 1 capsule (100 mg total) by mouth 3 (three) times a day Active tamsulosin (FLOMAX) 0.4 mg extended release capsuleIndicat ions:CLL (chronic lymphocytic leukemia) TAKE 1 CAPSULE 30 MIN AFTER A MEAL 025 Active benazepriL (LOTENSIN) 10 mg tablet Take 1 tablet (10 mg total) by mouth daily 024 Active evolocumab (REPATHA) syringe syringe Inject 1 mL (140 mg total) under the skin every 2 (two) weeks 1 mL 5 025 Active Active Problems Problem Noted Date Diagnosed Date Chest pain 09/10/2025 Pulmonary nodule 05/20/2020 CLL (chronic lymphocytic leukemia) 05/17/2018 Encounters Date Type Department Care Team Description 09/10/2025 3:30 PM CDT Office Visit [facility] at [address] [place] [address] Bunny Pineda MD Chest pain, unspecified type (Primary Dx); Lipid screening 09/07/2025 Telephone [facility] [address] [place] [address] Patrica Epps MA Medical Records Request from Last 3 Months Immunizations Immunization Administration Dates Next Due Influenza, Unspecified 02/21/2017,08/23/2016, Pfizer SARS-CoV-2 Monovalent Vaccination (12+ Yrs) PURPLE 03/08/2021,02/08/2021 ZOSTER LIVE 02/21/2017,08/23/2016 Medical History Medical History Date Comments Chronic lymphocytic leukemia (HCC) Diabetes mellitus Hypertension Family History Medical History Relation Name Comments [...] Sign Reading Time Taken Comments Blood Pressure 128/76 09/10/2025 3:31 PM CDT Pulse 95 09/10/2025 3:31 PM CDT Temperature 36.4 C (97.6 F) 06/01/2025 2:47 PM CDT Respiratory Rate 18 06/01/2025 2:47 PM CDT Oxygen Saturation 98% 09/10/2025 3:31 PM CDT Inhaled Oxygen Concentration - - Weight 101.2 kg (223 lb) 09/10/2025 3:31 PM CDT Height 180.3 cm (5' 11) 09/10/2025 3:31 PM CDT Body Mass Index 31.1 09/10/2025 3:31 PM CDT Plan of Treatment Health Maintenance Due Date Last Done Comments Colon Cancer Screening-Colonoscopy 1960 Depression Screening 1960 Fall Risk Assessment 1960 Hepatitis C Screening 1960 DTaP/Tdap/Td Vaccine (1 - Tdap) 1971 Hepatitis B Screening 1978 Pneumococcal vaccine 65+ (1 of 2 - PCV) 1979 Zoster Vaccine (1 of 2) 04/18/2017 02/21/2017, 08/23 Abdominal Aortic Aneurysm (A AA) Screen 2025 05/25/2025, 07/01/2024 Well Visit 65+ 2025 Covid-19 Vaccine (3 - season) 2025, 02/08/2021 Influenza Vaccine (#1) 2025 7, 08/23/2016, 08/31/2015 Prostate Cancer Screening-PSA 05/25/2027 05/25/2025 Procedures Procedure Name Priority Date/Time Associated Diagnosis Comments ECG 12-LEAD Routine 09/10/2025 3:35 PM CDT Chest pain, unspecified type POCT LIPID PANEL Routine 09/10/2025 3:27 PM CDT Lipid screening PSA DIAGNOSTIC Routine 05/25/2025 3:13 PM CDT Enlarged prostate CT CHEST ABDOMEN PELVIS W CONTRAST Schedule Routine, Read Routine (OP Routine) 05/25/2025 2:50 PM CDT CLL (chronic lymphocytic leukemia) (HCC) from Last 3 Months or Most Recently Relevant to Health Maintenance Results * ECG 12 lead (09/10/2025 3:35 PM CDT) Bunny Pineda MD ECG ORDERABLES Final Re sult * (ABNORMAL) POCT lipid panel (09/10/2025 3:27 PM CDT) Cholesterol, POC 227 <200 MG/DL HDL, POC 35(A) >=40 mg/dL Triglycerides, POC 221(A) <=149 mg/dL LDL Cholesterol POC 148(A) <=129 mg/dL Chol/HDL Ratio, POC 6.5 NONE Non-HDL Cholesterol, POC 192 NONE mg/dL Cholesterol Total, POC 227(A) 30 - 199 mg/dL Capillary blood 09/10/2025 3 :27 PM CDT Bunny Pineda MD POINT OF CARE TEST ORDER VIVIENNE Final Result * PSA diagnostic (05/25/2025 3:13 PM CDT) PSA-Total 1.74 <=5.40 ng/mL Comment: Interpretive Data AGE SEX REFERENCE INTERVAL 0 minutes-150 years Female None 0 minutes-49 years Male None 50-59 years Male 0-3.90 60-69 years Male 0-5.40 70-79 years Male 0-6.20 80-150 years Male 0-6.20 The Booker PSA Total assay procedure was used. Results from different manufacturers or methods may not be comparable. Serial testing should be performed using the same method. Current interpretive data last revised 22. Testing performed by: [facility], [address] [place] [address], [place]., [address] Blood 05/25/2025 3:13 PM CDT 05/25/2025 4:09 PM CDT us Hawa Bolton MD LAB BLOOD ORDERABLES Final Result [facility] [address] [facility] Department [place] [address] * CT chest abdomen pelvis with contrast (05/25/2025 2:50 PM CDT) Anatomical Region Laterality Modality Body N/A Computed Tomogra phy 06/02/2025 12:5 4 PM CDT Narrative 06/02/2025 1:04 PM CDT EXAM DESCRIPTION: CT CHEST ABDOMEN PELVIS W CONTRAST REASON FOR STUDY: Restaging of CLL Annual f/u on CLL. No complaints. No surgical hx. TECHNIQUE: CT scan of the chest, abdomen, and pelvis performed with intravenous and without oral contrast using helical scanning technique with dynamic intravenous contrast injection. Reconstructed coronal and sagittal MPR images reviewed. All images stored on PACS. Automated exposure control was used as a dose optimization technique for this examination. CONTRAST TYPE/DOSE: 100mL of IOVERSOL 350 MG IODINE/ML INTRAVENOUS SYRINGE injected via intravenous COMPARISON: CT chest, abdomen pelvis dated July 01, 2024 FINDINGS: CHEST LUNGS: Central airways patent. 0.5 cm pulmonary nodule right lower lobe (axial image 64) stable. 0.3 cm pulmonary nodule left lower lobe (axial image 70; stable). No new pulmonary nodules are seen. PLEURA: No effusion. No pneumothorax. MEDIASTINUM/CINDY: Scattered subcentimeter mediastinal lymph nodes are seen, stable. No hilar lymphadenopathy. HEART: Heart size is normal with no pericardial effusion. VASCULATURE CHEST: No thoracic aortic aneurysm or dissection. AXILLA: No adenopathy. CHEST WALL: No masses. No subcutaneous air. HARDWARE/LINES/TUBES: None. MUSCULOSKELETAL CHEST: No significant abnormality. ABDOMEN/PELVIS LIVER: Normal size. No identified cystic or solid masses. GALLBLADDER: No stones identified. No wall thickening or inflammatory changes. BILE DUCTS: No intrahepatic or extrahepatic ductal dilatation. SPLEEN: The spleen is mildly marked bra minute measuring maximum of 12.6 cm in craniocaudal dimension. No focal parenchymal lesion is seen. PANCREAS: No identified cystic or solid masses. No significant calcifications. No adjacent inflammation or peripancreatic fluid collections. Pancreatic duct not dilated. ADRENALS: Normal. KIDNEYS/URINARY TRACT: No identified significant cystic or solid masses. No visualized stones. No hydronephrosis or hydroureter. Symmetric enhancement. Urinary bladder is unremarkable. GI: No dilated bowel loops. No obvious wall thickening. Uncomplicated diverticular disease. PERITONEUM: No ascites or free air. Subcentimeter periportal lymph nodes are seen. There are mildly enlarged bilateral pelvic lymph nodes seen. The largest is a left external iliac lymph node measuring maximum of 2.6 x 1.6 cm, unchanged. RETROPERITONEUM: No mass or adenopathy. REPRODUCTIVE: No significant abnormality. VASCULATURE ABDOMEN: No abdominal aortic aneurysm. MUSCULOSKELETAL ABDOMEN PELVIS: No acute finding. OTHER: No significant abnormality. IMPRESSION: 1. Stable mildly enlarged bilateral pelvic lymph nodes. 2. Stable mild splenomegaly. 3. Stable subcentimeter mediastinal lymph nodes. 4. Stable pulmonary nodules as above. 5. Uncomplicated diverticular disease. THIS IS AN ELECTRONICALLY VERIFIED FINAL REPORT 06/02/2025 1:04 PM - Electronically signed by Josse Olguin M.D. JA: ANGELA Report ID: [id number] Reading Location: [id number] Procedure Note Josse Olguin MD - 06/02/2025 EXAM DESCRIPTION: CT CHEST ABDOMEN PELVIS W CONTRAST REASON FOR STUDY: Restaging of CLL Annual f/u on CLL. No complaints. No surgical hx. TECHNIQUE: CT scan of the chest, abdomen, and pelvis performed with intravenous and without oral contrast using helical scanning techniquewith dynamic intravenous contrast injection. Reconstructed coronal and sagittalMPR images reviewed. All images stored on PACS. Automated exposure control was used as a dose optimization technique for this examination. CONTRAST TYPE/DOSE: 100mL of IOVERSOL 350 MG IODINE/ML INTRAVENOUS SYRINGE injected via intravenous COMPARISON: CT chest, abdomen pelvis dated July 01, 2024 FINDINGS: CHEST LUNGS: Central airways patent. 0.5 cm pulmonary nodule right lower lobe (axial image 64) stable. 0.3 cm pulmonary nodule left lower lobe (axialimage 70; stable). No new pulmonary nodules are seen. PLEURA: No effusion. No pneumothorax. MEDIASTINUM/CINDY: Scattered subcentimeter mediastinal lymph nodes areseen, stable. No hilar lymphadenopathy. HEART: Heart size is normal with no pericardial effusion. VASCULATURE CHEST: No thoracic aortic aneurysm or dissection. AXILLA: No adenopathy. CHEST WALL: No masses. No subcutaneous air. HARDWARE/LINES/TUBES: None. MUSCULOSKELETAL CHEST: No significant abnormality. ABDOMEN/PELVIS LIVER: Normal size. No identified cystic or solid masses. GALLBLADDER: No stones identified. No wall thickening or inflammatory changes. BILE DUCTS: No intrahepatic or extrahepatic ductal dilatation. SPLEEN: The spleen is mildly marked bra minute measuring maximum of 12.6cm in craniocaudal dimension. No focal parenchymal lesion is seen. PANCREAS: No identified cystic or solid masses. No significant calcifications. No adjacent inflammation or peripancreatic fluidcollections. Pancreatic duct not dilated. ADRENALS: Normal. KIDNEYS/URINARY TRACT: No identified significant cystic or solid masses.No visualized stones. No hydronephrosis or hydroureter. Symmetricenhancement. Urinary bladder is unremarkable. GI: No dilated bowel loops. No obvious wall thickening. Uncomplicated diverticular disease. PERITONEUM: No ascites or free air. Subcentimeter periportal lymphnodes are seen. There are mildly enlarged bilateral pelvic lymph nodes seen.The largest is a left external iliac lymph node measuring maximum of 2.6 x 1.6cm, unchanged. RETROPERITONEUM: No mass or adenopathy. REPRODUCTIVE: No significant abnormality. VASCULATURE ABDOMEN: No abdominal aortic aneurysm. MUSCULOSKELETAL ABDOMEN PELVIS: No acute finding. OTHER: No significant abnormality. IMPRESSION: 1. Stable mildly enlarged bilateral pelvic lymph nodes. 2. Stable mild splenomegaly. 3. Stable subcentimeter mediastinal lymph nodes. 4. Stable pulmonary nodules as above. 5. Uncomplicated diverticular disease. THIS IS AN ELECTRONICALLY VERIFIED FINAL REPORT 06/02/2025 1:04 PM - Electronically signed by Josse VillaD. 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
[2025-09-19 08:32] LABS: Hemoglobin A1C 6.0 % (<5.7)
[2025-09-19 09:05] LABS: Alanine Aminotransferase 22 U/L (6-50); Albumin Level 4.6 g/dL (3.5-5.1); Alkaline Phosphatase 78 U/L (38-126); Anion Gap 8 mmol/L (4-12); Aspartate Amino Transferase 24 U/L (17-59); Bilirubin,Total 0.5 mg/dL (0.2-1.3); Blood Urea Nitrogen 19 mg/dL (9-20); Calcium 9.6 mg/dL (8.4-10.2); Carbon Dioxide 26 mmol/L (22-30); Chloride 104 mmol/L (98-107); Cholesterol 205 mg/dL (0-200); Estimated Glomerular Filt Rate > 60; Glucose 135 mg/dL (65-110); HDL Direct 45 mg/dL; Potassium 4.7 mmol/L (3.4-5.0); Sodium 138 mmol/L (137-145); Total Protein 7.6 g/dL (6.3-8.2); Triglycerides 214 mg/dL (<150)
[2025-09-19 09:36] LABS: Prostate Specific Antigen 1.8 ng/mL (< OR = 4.0); Thyroid Stimulating Hormone 1.780 uIU/mL (0.465-4.680)
[2025-09-19 09:41] LABS: MALB Creatinine Ratio 40.1 mg/g (0-30)
== END 2025-09-19 07:48 | disposition home or self-care (01) ==
LOC: ANHLAB 07:55
PROVIDERS: PCP Family Medicine; Visit Provider Family Medicine
DX: Z12.5 Encounter for screening for malignant neoplasm of prostate (principal); E11.29 Type 2 diabetes mellitus with other diabetic kidney complication; E78.2 Mixed hyperlipidemia; E55.9 Vitamin D deficiency, unspecified; N40.1 Benign prostatic hyperplasia with lower urinary tract symptoms; N13.8 Other obstructive and reflux uropathy; R79.89 Other specified abnormal findings of blood chemistry; R80.9 Proteinuria, unspecified; R00.0 Tachycardia, unspecified; Z13.220 Encounter for screening for lipoid disorders
CPT/HCPCS: 36415; 80048; 80061; 80076; 82043; 82306; 83036; 84153; 84443; G0103